=== PATIENT | female | born 1985 | race Caucasian/White ===

== ENCOUNTER 2017-03-15 06:04 | Day surgery (SDC) | payer BC ==
[2017-03-15] VITALS (13 sets, daily range): BP systolic 94–124; BP diastolic 62–82
[~2017-03-15] VITALS: Ht 167.6 cm; Wt 71.7 kg
--- NOTE | 2017-03-15 04:45 | Pre-op HX & Phy Repo 2 SIG ---
DATE OF ADMISSION: 03/15/2017 HISTORY OF PRESENT ILLNESS: This is a 31-year-old female, who presents for LEEP procedure which is a loop electrosurgical excision procedure for severe cervical dysplasia. The patient has received care in [facility]. The patient was found to have an abnormal Pap smear showing ASCUS and HPV positive which was evaluated with colposcopy, which noted KEILY 2 to 3 on cervical biopsy. Given these findings of high-grade severe cervical dysplasia, it was recommended to receive treatment. Risks, benefits, alternatives were discussed with the patient including surgery versus cryotherapy and the patient desired to proceed with LEEP procedure. Risks of the surgery including but not limited to, bleeding, possibility of hemorrhage, infection, damage to nearby structures, possibility of affecting fertility and future pregnancies including labor and scarring were all discussed with the patient and the patient desired to proceed with surgery. Also risk of anesthesia was discussed. SPRAY APPLICATOR HISTORY: The patient has never been before. This is her first abnormal Pap smear. Denies any other sexually transmitted infections. PAST MEDICAL HISTORY: History of depression and anxiety. PAST SURGICAL HISTORY: Tonsillectomy. MEDICATIONS: 1. control, Noemí. 2. Lexapro. ALLERGIES: 1. Reglan which reaction is loss of most muscle control, partial paralysis. 2. Penicillin, reaction is hives and swelling. SOCIAL HISTORY: Denies any smoking or drug use. Drinks alcohol socially. PHYSICAL EXAMINATION: GENERAL APPEARANCE: The patient is a well-developed and well-nourished female. VITAL SIGNS: Within normal limits. HEART: Regular rate and rhythm. LUNGS: Clear to auscultation bilaterally. ABDOMEN: Soft, nontender, and nondistended. ASSESSMENT AND PLAN: This is a 31-year-old female, who is found to have abnormal Pap smear, which was evaluated with colposcopy which showed high-grade cervical dysplasia, who presents for loop electrosurgical excision procedure (LEEP). Risks, benefits, and alternatives were discussed with patient as per history of present illness and the patient desired to proceed with surgery. The patient has received medical clearance from her primary care doctor, Dr. Heather Figueroa. Please see her notes for medical clearance. Therefore, the plan is to proceed with LEEP surgery on 03/15/2017. Kelsey Sims M.D. DR: Lisa JOB#: [id number] CC: IRMA
[2017-03-15] MEDS ORDERED: LEXAPRO5 MG ORAL (06:41)
[2017-03-15] MEDS ORDERED: Ferric Subsulfate (Monsel's Soln) 30ml TOPIC ONE (06:45)
[2017-03-15] MEDS ORDERED: Lugol's (Strong Iodine) 30ml btl TOPIC ONE (06:45)
[2017-03-15] MEDS ORDERED: Silver Nitrate Stick TOPIC ONE (06:48)
[2017-03-15] MEDS ORDERED: Lidocaine 1% Plain 30 ml INJ ONE (06:48)
[2017-03-15] MEDS ORDERED: LR 1000ml 1,000 ML IV SCH ×2 (06:50→07:15)
[2017-03-15] MEDS ORDERED: Clindamycin 2 ML ONE (07:07)
--- NOTE | 2017-03-15 07:12 | Pre-Procedure Note/Attestation ---
Pre-Procedure Note/Attestation Complete Prior to Procedure Planned Procedure: not applicable Procedure Narrative: LEEP (Loop electrosurgical excisional procedure) Indications for Procedure Pre-Operative Diagnosis: High grade/severe cervical dysplasia Attestation I attest that I discussed the nature of the procedure; its benefits; risks and complications; and alternatives (and the risks and benefits of such alternatives ), prior to the procedure, with the patient (or the patient's legal insurance healthcare representative). I attest that, if there was a reasonable possibility of needing a blood transfusion, the patient (or the patient's legal insurance healthcare representative) was given the [facility] standardized written summary, pursuant to the [place] Blood Safety Act ([place] Health and Safety Code # 1645, as amended). I attest that I re-evaluated the patient just prior to the surgery and that there has been no change in the patient's H&P, except as documented below: LAMINE BULL Mar 15, 2017 07:12
[2017-03-15] MEDS ORDERED: Ketorolac 30mg Inj ONE (07:30)
[2017-03-15] MEDS ORDERED: fentaNYL 100 mcg/2 mL IV ONE (07:30)
[2017-03-15] MEDS ORDERED: Propofol 10mg/ml 20ml IV ONE (07:30)
[2017-03-15] MEDS ORDERED: NS Irrig 1000ml ONE (07:30)
[2017-03-15] MEDS ORDERED: LR 1000ml ONE (07:30)
[2017-03-15] MEDS ORDERED: Midazolam 2mg/2ml Inj ONE (07:30)
[2017-03-15] MEDS ORDERED: Sterile Water Irrig 1000ml IRRIG ONE (07:30)
[2017-03-15] MEDS ORDERED: Lidocaine HCl 2% Jelly 5ml Tube TOPIC ONE (07:33)
[2017-03-15] MEDS ORDERED: LR 1000ml 1,000 ML IVLG SCH (07:38)
--- NOTE | 2017-03-15 07:38 | Anethesia Preoperative Eval ---
Anesthesia Pre-op PMH/ROS General Date of Evaluation: Mar 15, 2017 Time of Evaluation: 06:55 Anesthesiologist: Bulmaro ASA Score: ASA 2 Mallampati Score Class I : Soft palate, uvula, fauces, pillars visible Class II: Soft palate, uvula, fauces visible Class III: Soft palate, base of uvula visible Class IV: Only hard plate visible Mallampati Classification: Class II Surgeon: Levi Diagnosis: Cervical dysplasia Surgical Procedure: LEEP Anesthesia History: PONV - moderate post T&A Family History: no anesthesia problems Allergies: Coded Allergies: PENICILLINS (Verified Allergy, Severe, 03/15/17) SWOLLEN,ITCHY AND HIVES METOCLOPRAMIDE (Verified Allergy, Unknown, 03/11/17) Medications: see eMAR Past Medical History Cardiovascular: Denies: CAD, HTN, SC, arrhythmia, other, valve dz Pulmonary: Denies: COPD, CATARINO, asthma, other Gastrointestinal/Genitourinary: Reports: GERD, other - abdominal pain, Denies: CRI, ESRD Neurologic/Psychiatric: Denies: CVA, TIA, dementia, depression/anxiety, other Endocrine: Denies: DM, hypothyroidism, other, steroids HEENT: Denies: KAIBAB (L), KAIBAB (R), cataract (L), cataract (R), glaucoma, other Hematology/Immune: Denies: DVT, anemia, bleeding disorder, other Musculoskeletal/Integumentary: Denies: DDD, DJD, OA, RA, edema, other PMH Narrative: as above PSxH Narrative: T&A GI endoscopies Anesthesia Pre-op Phys. Exam Physician Exam Last Vital Signs Date Time Temp Pulse Resp B/P Pulse Ox O2 Delivery O2 Flow Rate FiO2 03/15/17 06:54 97.3 64 20 117/80 100 Room Air Constitutional: NAD Neurologic: CN 2-12 intact Cardiovascular: RRR, no M/R/G Respiratory: CTA Gastrointestinal: S/NT/ND Airway Exam Mallampati Score: Class II MO: full Neck: flexible ROM: full Teeth: intact Dentures: no lower, no upper Anesthesia Pre-op A/P Labs see chart Urine Test Test 03/15/17 06:15 Urine HCG, Qualitative Negative Risk Assessment & Plan Assessment: ASA 2 Plan: GA with LMA PONV prevention Status Change Before Surgery: No Pre-Antibiotics Drug: Clindamycin 300 mg Given Within 1 Hr of Incision: Yes Time Given: 07:22 ESTEE NI M.D. Mar 15, 2017 07:38
[2017-03-15] MEDS ORDERED: Hydromorphone 0.5mg/0.5ml inj IVP PRN (07:45)
[2017-03-15] MEDS ORDERED: DiphenhydrAMINE 50mg/ml Inj IVP PRN (07:45)
[2017-03-15] MEDS ORDERED: Meperidine 25mg/0.5ml Inj IV PRN (07:45)
[2017-03-15] MEDS ORDERED: Ketorolac 30mg Inj IV PRN (07:45)
--- NOTE | 2017-03-15 07:56 | Operative Note - PDOC ---
Operative Note Operative Note Pre-op Diagnosis: High grade/severe cervical dysplasia Post-op Diagnosis: same as pre-op Surgeon: Dr. Lamine Sims Anesthesiologist: Dr. Marko Chamberlain Anesthesia: general Specimen: yes - LEEP specimen & endocervical curettage Complications: none Condition: stable Fluids: 1 L Estimated Blood Loss: minimal - 10 ml Drains: none Implant(s) used?: No Description of Procedure LAMINE VILLA Mar 15, 2017 07:56
--- NOTE | 2017-03-15 07:58 | Discharge Instructions ---
Discharge Instructions Discharge Instructions Follow up with: Dr. Lamine Bull Call MD/Return to Hospital if: heavy vaginal bleeding, fever, severe pelvic/ abdominal pain Resume Normal Activity?: No - pelvic rest for 6 weeks Follow Up Orders Follow up in office in 2 weeks For Congestive Heart Failure Reminder Report to your physician any weight gain of 5 pounds or more in one week. LAMINE BULL Mar 15, 2017 07:58
--- NOTE | 2017-03-15 08:02 | Immediate Post-Op Evaluation ---
Immediate Post-Op Evalulation Immediate Post-Op Evalulation Procedure: LEEP Date of Evaluation: Mar 15, 2017 Time of Evaluation: 08:00 IV Fluids: 1000 Blood Products: none Estimated Blood Loss: <50 Urinary Output: none Blood Pressure Systolic: 99 Blood Pressure Diastolic: 66 Pulse Rate: 58 Respiratory Rate: 22 O2 Sat by Pulse Oximetry: 99 Temperature (Fahrenheit): 97.5 Pain Score (1-10): 2 Nausea: No Vomiting: No Complications none Patient Status: reacts, patent, none Hydration Status: adequate ESTEE NI M.D. Mar 15, 2017 08:01
--- NOTE | 2017-03-15 08:50 | 48 Hour Post Anesthesia Eval ---
Post Anesthesia Evaluation Procedure: LEEP Date of Evaluation: Mar 15, 2017 Time of Evaluation: 08:48 Blood Pressure Systolic: 104 0: 57 Pulse Rate: 62 Respiratory Rate: 20 Temperature (Fahrenheit): 97.6 O2 Sat by Pulse Oximetry: 98 Airway: patent Nausea: No Vomiting: No Pain Intensity: 1 Hydration Status: adequate Cardiopulmonary Status: stable Mental Status/LOC: patient returned to baseline Follow-up Care/Observations: n/a Post-Anesthesia Complications: none Follow-up care needed: ready to discharge ESTEE NI M.D. Mar 15, 2017 08:50
--- NOTE | 2017-03-24 01:45 | Operative Note - Dictated ---
DATE OF OPERATION: 03/15/2017 PREOPERATIVE DIAGNOSIS: High-grade cervical dysplasia. POSTOPERATIVE DIAGNOSIS: High-grade cervical dysplasia. PROCEDURE: LEEP (loop electrosurgical excisional procedure). SURGEON: Kelsey Sims M.D. ANESTHESIOLOGIST: Marko Chamberlain M.D. ANESTHESIA: General. EBL: 10 mL. COMPLICATIONS: None. INDICATIONS: This is a 31-year-old female, who was found to have abnormal Pap smear, which was evaluated with colposcopy and was found to have severe high-grade cervical dysplasia KEILY 2 to 3. She desired to proceed with the LEEP surgery. Risks, benefits, and alternatives were discussed with patient and consent was signed prior to surgery. OPERATIVE FINDINGS: Normal external female genitalia. Vulva, vagina, and cervix without any difficulty. PROCEDURE: The patient was taken to the operating room where general anesthesia was found to be adequate. She was then prepped and draped in the dorsal lithotomy position using Paul stirrups. Time-out was given with all staff present. A bivalve speculum was placed into the vagina and cervix was fully visualized and noted the visible lesions. A paracervical block with 1% lidocaine was given. The cervix was painted with Lugol solution. The LEEP was then performed using with the loop electrode in a single attempt. The LEEP specimen was then tagged at 12 o'clock with silk suture. An endocervical curettage was then performed with a 14-curette. Both specimens was sent off for pathology. Excellent hemostasis was then obtained using Rollerball tip as well as with Monsel's solution. Excellent hemostasis was noted. The patient was then taken out of anesthesia and taken to recovery in stable condition. All counts were correct x2 at the end of the procedure. Kelsey Sims M.D. DR: Lisa JOB#: [id number] CC: IRMA
== END 2017-03-15 11:35 | disposition home or self-care (01) ==
LOC: SUR 06:04
DX: D06.9 Carcinoma in situ of cervix, unspecified (principal); K21.9 Gastro-esophageal reflux disease without esophagitis; F32.9 Major depressive disorder, single episode, unspecified; F41.9 Anxiety disorder, unspecified; Z88.0 Allergy status to penicillin; Z88.8 Allergy status to other drugs, medicaments and biological substances
CPT/HCPCS: 57522; 81025; J1885; J2001; J2250; J2405; J2704; J3010; J7120; S0077; 94003; 94150